=== PATIENT | female | born 1985 | race Caucasian/White ===

== ENCOUNTER 2016-08-25 01:16 | Emergency (ER) | payer OTHER ==
[~2016-08-25] VITALS: Ht 157.5 cm; Wt 97.5 kg
[2016-08-25 01:36] VITALS: BP 174/110
== END 2016-08-25 03:29 | disposition home or self-care (01) ==
LOC: ED 01:16
DX: L02.215 Cutaneous abscess of perineum (principal)

== ENCOUNTER 2016-08-26 21:33 | Inpatient (IN) | payer OTHER ==
[~2016-08-26] VITALS: Ht 157.5 cm; Wt 94.8 kg
--- NOTE | 2016-08-27 01:40 | NUR ---
REC'D A 31 YEAR OLD FEMALE IN RM 2A WITH C/0 VAGINAL PAIN. PT WAS SEEN YESTERDAY AT [facility] [place] AND DX WITH PERINEUM ABSCESS AND INSTRUCTED TO F/U WITH OB. PER PT, "I SAW THE OB AT [facility] TODAY AND THE SWELLING GOT BIGGER AND PAIN INCREASED. I CAN BARELY WALK". PER PT, THE OB RECOMMENDED THE PT TO GO BACK TO THE ED. PT AAOX4, RESP EVEN AND UNLABORED. NICKEL SIZE RED ABSCESS NOTED TO PERINEUM. CALL LIGHT WITHIN REACH, WILL CONTINUE TO MONITOR.
[2016-08-27] MEDS ORDERED: ALPRAZOLAM0.25 MG PO (02:11)
[2016-08-27] MEDS ORDERED: BACTRIM DS1 TAB PO (02:12)
[2016-08-27] MEDS ORDERED: APAP/HYDROCODON1 T11 PO (02:13)
[2016-08-27] MEDS ORDERED: IBUPROFEN400 MG PO (02:14)
--- NOTE | 2016-08-27 02:37 | NUR ---
INITIATED CLEOMYCIN @100ML/HR. ADMINISTERED TORADOL IVP. PLEASE SEE EMAR.
[2016-08-27 02:39] LABS: BASOPHIL % 0.3 % (0-2); PLATELET COUNT 336 x10^3mcL (130-400)
[2016-08-27 02:46] LABS: CALCIUM 9.9 mg/dL (8.5-10.1); CARBON DIOXIDE 23.8 mmol/L (21-32); CHLORIDE SERUM 99 mmol/L (98-107); CREATININE SERUM 0.7 mg/dL (0.6-1.0); GFR1 > 60 mL/min; GLUCOSE SERUM 228 mg/dL (74-106); POTASSIUM SERUM 3.7 mmol/L (3.5-5.1); SODIUM SERUM 138 mmol/L (136-145)
[2016-08-27] MEDS ORDERED: TOPROL XL25 MG PO (02:46)
[2016-08-27] MEDS ORDERED: LATUDA40 M1 PO (02:47)
[2016-08-27] MEDS ORDERED: GLIPIZIDE2.5 M1 PO (02:47)
[2016-08-27] MEDS ORDERED: LITHIUM CARBON300 MG PO (02:49)
[2016-08-27] MEDS ORDERED: METFORMIN500 M1 PO (02:49)
[2016-08-27 02:58] LABS: UA SPECIFIC GRAVITY 1.025 (1.005-1.035); microscopic required? YES; urine erythrocyte 2+ (NEGATIVE)
[2016-08-27 02:59] LABS: ALBUMIN 3.3 g/dL (3.4-5.0); BILIRUBIN DIRECT 0.14 mg/dL (0.0-0.2); BILIRUBIN TOTAL 0.34 mg/dL (0.20-1.00); MAGNESIUM 1.5 mg/dL (1.8-2.4); PHOSPHOROUS 3.8 mg/dL (2.5-4.9); TOTAL PROTEIN, SERUM 8.6 g/dL (6.4-8.2)
[2016-08-27 03:07] LABS: AMPHETAMINE QUAL UR NONE DETECTED (NEG <=1000)
--- NOTE | 2016-08-27 03:08 | NUR ---
PT TAKEN TO CT VIA WC.
[2016-08-27 03:09] LABS: T3 TOTAL 1.24 ng/mL
--- NOTE | 2016-08-27 03:15 | NUR ---
PT TAKEN TO RESTROOM VIA WC.
[2016-08-27 03:17] LABS: FREE T4 1.41 ng/dL (0.76-1.46)
--- NOTE | 2016-08-27 03:37 | NUR ---
REPORT GIVEN TO DOMINICK CABRERA TO ASSUME CARE OF THE PT.
--- NOTE | 2016-08-27 03:49 | NUR ---
INITIATED ZOSYN @100ML/HR. PLEASE SEE EMAR.
[2016-08-27 04:14] VITALS: BP 113/83
[2016-08-27 04:15] LABS: FREE THYROXINE INDEX 4.4 ug/dL (1.4-4.5); T4(THYROXINE) 13.4 ug/dL (4.7-13.3)
--- NOTE | 2016-08-27 04:25 | NUR ---
RECEIVED PT FROM ER VIA GURENY ACCOMPANIED WITH NURSE AND EMT, PT SEEN, ALERT AND ORIENTED, DENIES HEADACHE OR DIZZINESS, BREATHING EVEN AND UNLABORED, NO SOB, LUNG SOUNDS CLEAR, ON ROOM AIR WITH SPO2:99%, ON TELE#21 ST, DENIES CHEST PAIN, PULSES PALPABLE, NO EDEMA NOTED, AMBULATORY WITH STEADY GAIT, ABD OBESE WITH ACTIVE BS, NO BM AT THIS TIME, DENIES ABD PAIN, VOIDING FREELY, REDNESS, SWELLING TO SUPRAPUBIC SITE, WARM TO TOUCH, NO OPEN WOUND OR DRAINAGE NOTED, MADE DR KEYS AWARE OF PT'S LACTID ACID-2.5 UPON ADMISSION, NO NEW ORDER RECEIVED AT THIS TIME.
--- NOTE | 2016-08-27 05:00 | NUR ---
DR HERNÁNDEZ AND DR KEYS AWARE OF CRITICAL RESULT OF CT PELVIS, PER DR HERNÁNDEZ MAKE PT NPO AT THIS TIME, PT'S BLOOD SUGAR-246 MG/DL THIS MORNING, PER DR HERNÁNDEZ HOLD GLIPIZIDE THIS MORNING, OKAY TO GIVE RISS 6 UNITS.
[2016-08-27 05:46] VITALS: BP 110/69
--- NOTE | 2016-08-27 06:28 | NUR ---
MADE DR Grubbs AWARE OF PT'S LACTID ACID-2.6, ALSO MADE DR Grubbs AWARE OF ONE OF PT'S ABSCESS INSIDE LABIA WAS DRAINING, CULTURE OBATINED, AWAITING ORDERS.
--- NOTE | 2016-08-27 07:30 | NUR ---
PATIENT AOX4, DENIES HEADACHE, STATES FEELING ANXIOUS AT TIMES. TELE [address] 103, DENIES CP. LUNGS CTA, NO RESP DISTRESS NOTED ON RA. PERIPHERAL PULSES PALPABLE. BOWEL SOUNDS ACTIVE, LAST BM STATED YESTERDAY NORMAL. VOIDS FREELY, DENIES BURNING UPON URINATION. REDNESS/SWELLING NOTED TO PERIAREA WITH LIGHT DRAINAGE FROM LT LABIA AND FOUL ODOR NOTED. PERIPAD UTILIZED WITH WALL /YELLOWISH SATURATION. C/O PAIN 5/10 PRESSURE-LIKE. WILL MEDICATE APPROPRIATELY PER EMAR. IV ACCESS TO LAC RUNNING NS AT 100ML/HR INFUSING WELL SITE WNL CALL LIGHT WITHIN REACH.
[2016-08-27 08:45] VITALS: BP 119/80
--- NOTE | 2016-08-27 08:58 | NUR ---
VITALS TAKEN AND CHARTED. MORPHINE 2MG GIVEN FOR PAIN PELVIC/JEREMIAH AREA 08/26 PRESSURE LIKE. HEPLOCKED AND GOING DOWN TO RAD NOW FOR CT.
--- NOTE | 2016-08-27 10:20 | NUR ---
DR TOBAR AT BEDSIDE.
--- NOTE | 2016-08-27 13:02 | NUR ---
PATIENT TOLERATING LUNCH MEAL WELL. STATES MORPHINE STILL EFFECTIVE, BUT PAIN COMES AND GOES. WILL CONT TO MONITOR.
[2016-08-27] MEDS ORDERED: LEV500PM IV (14:18)
[2016-08-27] MEDS ORDERED: CLINDAMYCI600 MG/50 IV (14:21)
[2016-08-27] MEDS ORDERED: LAC PO (14:24)
[2016-08-27] MEDS ORDERED: LIT300 PO ×2 (14:26→14:28)
[2016-08-27 14:38] VITALS: BP 136/79
[2016-08-27 15:41] VITALS: BP 136/79
--- NOTE | 2016-08-27 16:55 | NUR ---
REPORT GIVEN TO [facility]. PATIENT HEPLOCKED AND TELE RETURNED TO TECH [facility]. GOWN CHANGED. REPORT GIVEN TO [employer] [employer]. PATIENT LEAVING VIA GUERNEY. NO DISTRESS NOTED.
== END 2016-08-27 16:58 | disposition short-term general hospital (02) | DRG 871 ==
LOC: ED 21:33 → DU 08-27 02:07
PROVIDERS: Emergency Medicine Emergency Medical Services; ADMIT Family Medicine
DX: A41.9 Sepsis, unspecified organism (principal); N17.0 Acute kidney failure with tubular necrosis; N76.4 Abscess of vulva; L02.215 Cutaneous abscess of perineum; E44.1 Mild protein-calorie malnutrition; D68.69 Other thrombophilia; R65.20 Severe sepsis without septic shock; E11.59 Type 2 diabetes mellitus with other circulatory complications; E11.65 Type 2 diabetes mellitus with hyperglycemia; E83.42 Hypomagnesemia; I10 Essential (primary) hypertension; F31.9 Bipolar disorder, unspecified; E78.5 Hyperlipidemia, unspecified; E66.9 Obesity, unspecified; Z68.38 Body mass index [BMI] 38.0-38.9, adult
CPT/HCPCS: 82962; 83880; 84439; J1885; J1956; J2270; J2543; J3475; J3490; J7030; Q0092; Q9967